=== PATIENT | female | born 1970 | race Caucasian/White ===

== ENCOUNTER 2020-01-06 09:10 | Outpatient (CLI) | payer OTHER, SELFPAY ==
--- NOTE | ~2020-01-06 | MM_ITS ---
EXAMINATION: MM screening alice BI w tonny HISTORY: Screening mammogram TECHNIQUE: Craniocaudal and mediolateral oblique 3-D tomosynthesis images were obtained and synthetic 2-D images were generated. CAD analysis was submitted and interpreted. COMPARISON: No prior mammogram is available for comparison at this institution. BREAST PARENCHYMAL COMPOSITION: The breasts are almost entirely fatty...................... FINDINGS: There is no evidence of suspicious mass, calcification, or architectural distortion to sugg est malignancy in either breast. There has been no suspicious interval change. IMPRESSION: 1. No mammographic evidence of malignancy. 2. Recommend routine screening mammography in one year. BI-RADS Category 1: Negative Reviewed, dictated and finalized at location A.
== END 2020-01-06 09:11 | disposition home or self-care (01) ==
PROVIDERS: PCP Internal Medicine; Visit Provider Internal Medicine
DX: Z12.31 Encounter for screening mammogram for malignant neoplasm of breast (principal)
CPT/HCPCS: 77063; 77067

== ENCOUNTER 2020-01-18 10:29 | Outpatient (CLI) | payer OTHER, SELFPAY ==
--- NOTE | ~2020-01-18 | XR_ITS ---
EXAMINATION: XR lumbar spine min 4V DATE: 01/18/2020 10:58 INDICATION: Postlaminectomy syndrome TECHNIQUE: AP, lateral, and bilateral oblique of the lumbar spine were obtained. COMPARISON: 05/17/2019 FINDINGS: There are changes of posterior fusion from L3 through L5 and anterior fusion from L3-4 thro ugh L5-S1. Laminectomy changes noted from L3 through L5. There has been interval revision of the post erior lumbar fusion hardware. There are 5 mm of stable anterolisthesis of L4 on L5 and 5 mm of stable retrolisthesis of L2 on L3. There is unchanged severe loss of intervertebral disc space height at L2 -3. No fracture is identified. IMPRESSION: 1. Interval revision of posterior lumbar fusion hardware without acute findings. Severe spondylosis. Reviewed, dictated and finalized at location A. IMPRESSION: 1. Interval revision of posterior lumbar fusion hardware without acute findings . Severe spondylosis.
== END 2020-01-18 10:30 | disposition home or self-care (01) ==
LOC: ANHIMG 10:41
PROVIDERS: PCP Internal Medicine
DX: M96.1 Postlaminectomy syndrome, not elsewhere classified (principal); Z98.1 Arthrodesis status; M47.26 Other spondylosis with radiculopathy, lumbar region
CPT/HCPCS: 72110

== ENCOUNTER → 2022-04-21 09:53 | Outpatient (CLI) | payer OTHER, SELFPAY ==
--- NOTE | ~2022-04-21 | MR_ITS ---
EXAMINATION: MR lumbar spine wo con DATE: 04/21/2022 10:35 INDICATION: Postlaminectomy syndrome, lumbar region. Low back pain. Left leg pain. TECHNIQUE: Magnetic resonance imaging (MRI) of the lumbar spine was performed without intravenous con trast. Sequences included sagittal T2-weighted FSE, sagittal T2-weighted FS FSE, sagittal T1-weighted FSE, and axial T2-weighted FSE. COMPARISON: Lumbar spine MRI 08/17/2019, radiographs 01/18/2020 FINDINGS: There is 3 degrees dextrocurvature of lumbar spine. There is 6 mm retrolisthesis of L2 on L 3. There is 5 mm anterolisthesis of L4 on L5. There are anterior fusion procedures from L3 to S1 with interbody devices. There changes of posterior fusion procedure from L2 to L5 with pedicle screws. Th ere is severely decreased disc height at L1-L2 with endplate remodeling and 1/5 height loss of L1 and L2 vertebral bodies. There is severely decreased disc height at L2-L3 with endplate remodeling. Ther e is increased T2-weighted signal intensity in the visualized portion of the spinal cord. The conus m edullaris is at L1. There is peripheral displacement of the cauda equina at L5 and S1, consistent wit h arachnoiditis. There are laminectomies of lumbar spine with a fluid collection in the postsurgical bed, likely a seroma. The following disc levels are specifically discussed: L1-L2: The disc is bulging and has an annular fissure. There is severe bilateral facet joint osteoart hritis. There is mild right and moderate left neural foraminal stenosis. There is moderate central ca nal stenosis. L2-L3: There is a central extrusion. There is no facet joint osteoarthritis. There is mild bilateral neural foraminal stenosis. There is mild central canal stenosis with posterior decompression. L3-L4: There is no facet joint hypertrophy. There is no neural foraminal stenosis. There is no centra l canal stenosis. L4-L5: There is moderate bilateral facet joint hypertrophy. There is mild bilateral neural foraminal stenosis. There is no central canal stenosis. L5-S1: There is mild bilateral facet joint hypertrophy. There is mild bilateral neural foraminal sten osis. There is no central canal stenosis. IMPRESSION: 1. Severe lumbar spondylosis with interval worsening at L1-L2. 2. Anterior fusion procedure from L3 to S1 and posterior fusion procedure from L2 to L5. 3. Increased T2-weighted signal intensity in the visualized portion of the spinal cord. This finding may be seen with artifact, acute transverse myelitis, infarct, dural arteriovenous fistula, viral mye litis, and occult neoplasm. Consider cervical and thoracic spine MRI without and with contrast. 4. Stable findings of arachnoiditis. Reviewed, dictated and finalized at location A. IMPRESSION: 1. Severe lumbar spondylosis with interval worsening at L1-L2. 2. Anterior fusion procedure from L3 to S1 and posterior fusion procedure from L2 to L5. 3. Increased T2-weighted signal intensity in the visualized portion of the spin al cord. This finding may be seen with artifact, acute transverse myelitis, inf arct, dural arteriovenous fistula, viral myelitis, and occult neoplasm. Conside r cervical and thoracic spine MRI without and with contrast. 4. Stable findings of arachnoiditis.
== END ==
PROVIDERS: PCP Internal Medicine; Visit Provider Physician Assistant
DX: M96.1 Postlaminectomy syndrome, not elsewhere classified (principal); M47.896 Other spondylosis, lumbar region; Z98.1 Arthrodesis status
CPT/HCPCS: 72148

== ENCOUNTER → 2022-05-27 11:57 | Outpatient (CLI) | payer OTHER, SELFPAY ==
--- NOTE | ~2022-05-27 | MR_ITS ---
EXAMINATION: MR thoracic spine wo/w con DATE: 05/27/2022 13:12 INDICATION: Other spondylosis with myelopathy, thoracic region. TECHNIQUE: Magnetic resonance imaging (MRI) of the thoracic spine was performed without and with 15 m L MultiHance intravenous contrast. COMPARISON: Lumbar spine MRI 04/21/2022 FINDINGS: Bone alignment is normal. There are Schmorl's nodes at multiple levels. There is mild chron ic anterior wedging of T5, T6, and T7 vertebral bodies. There are changes of posterior fusion procedu re from L2 to L5. There is chronic anterior wedging of L1 vertebral body. There is severe degenerativ e disc disease at L1-L2 as described on the prior MRI. There is mildly decreased disc height from T3- T4 through T9-T10. There is mild facet joint osteoarthritis at many levels. At T9-T10, there is moder ate bilateral neural foraminal stenosis. There are bulges or extrusions from T2-T3 through T9-T10 wit h mild central canal stenosis. There is ventral indentation of the spinal cord at T5-T6, T6-T7, T7-T8 , T8-T9, and T9-T10. The spinal cord signal intensity is normal. The conus medullaris is at L1. IMPRESSION: 1. Normal spinal cord signal intensity. 2. Moderate thoracic spondylosis. Reviewed, dictated and finalized at location A.
--- NOTE | ~2022-05-27 | MR_ITS ---
EXAMINATION: MR cervical spine wo/w con DATE: 05/27/2022 13:12 INDICATION: Other spondylosis with myelopathy, thoracic region. Neck and back pain. TECHNIQUE: Magnetic resonance imaging (MRI) of the cervical spine was performed without and with 15 m L MultiHance intravenous contrast. COMPARISON: None FINDINGS: There is 2 mm retrolisthesis of C5 on C6. There is mild chronic anterior wedging of C5, C6, and C7 vertebral bodies. There is mildly decreased disc height at C5-C6. The spinal cord signal inte nsity is normal. The following disc levels are specifically discussed: C2-C3: The disc does not extend beyond the endplate margin. There is no uncovertebral joint osteoarth ritis. There is mild bilateral facet joint osteoarthritis. There is no neural foraminal stenosis. The re is no central canal stenosis. C3-C4: The disc does not extend beyond the endplate margin. There is mild bilateral uncovertebral aldo nt osteoarthritis. There is mild left facet joint osteoarthritis. There is no neural foraminal stenos is. There is no central canal stenosis. C4-C5: The disc does not extend beyond the endplate margin. There is mild bilateral uncovertebral aldo nt osteoarthritis. There is mild bilateral facet joint osteoarthritis. There is no neural foraminal s tenosis. There is no central canal stenosis. C5-C6: The disc is bulging. There is moderate bilateral uncovertebral joint osteoarthritis. There is moderate bilateral facet joint osteoarthritis. There is mild bilateral neural foraminal stenosis. The re is mild central canal stenosis with ventral indentation of the spinal cord. C6-C7: The disc does not extend beyond the endplate margin. There is mild bilateral uncovertebral aldo nt osteoarthritis. There is mild bilateral facet joint osteoarthritis. There is mild bilateral neural foraminal stenosis. There is no central canal stenosis. C7-T1: The disc does not extend beyond the endplate margin. There is no uncovertebral joint osteoarth ritis. There is no facet joint osteoarthritis. There is no neural foraminal stenosis. There is no clark tral canal stenosis. IMPRESSION: 1. Normal spinal cord signal intensity. 2. Mild cervical spondylosis. Reviewed, dictated and finalized at location A.
== END ==
PROVIDERS: PCP Internal Medicine; Visit Provider Physician Assistant
DX: M47.14 Other spondylosis with myelopathy, thoracic region (principal); M47.892 Other spondylosis, cervical region; M47.894 Other spondylosis, thoracic region
CPT/HCPCS: 72156; 72157; A9577

== ENCOUNTER 2024-07-12 08:54 | Outpatient (CLI) | payer OTHER, SELFPAY ==
--- NOTE | ~2024-07-12 | XR_ITS ---
XR hip RT 2V w AP pelvis Ordering provider: Aarbella Figueroa, LORA History: . R hip pain . Comparison: None. FINDINGS: BONES: No acute fracture or dislocation. Small bony fragment seen near to the right greater trochante r which may be tendinous calcification or nonunited apophysis. Acute fracture is less likely. HIP JOINT SPACES: Normal. SACROILIAC JOINT SPACES/LUMBAR SPINE: The sacroiliac joint spaces shows bilateral sacroiliacs. Mild degenerative changes of the visualized lower lumbar spine. Postoperative changes in the lumbar s pine. PUBIC SYMPHYSIS: Normal. SOFT TISSUES: Normal. IMPRESSION: No acute osseous abnormality pelvis and right hip. Reviewed, dictated and finalized at location A. [employer]
== END 2024-07-12 08:55 | disposition home or self-care (01) ==
PROVIDERS: PCP Family Medicine Adolescent Medicine; Visit Provider Physician Assistant
DX: M25.551 Pain in right hip (principal)
CPT/HCPCS: 73502